=== PATIENT | male | born 1975 | race Caucasian/White ===

== ENCOUNTER 2023-09-21 06:05 | Day surgery (SDC) | payer OTHER ==
[2023-09-14 10:35] LABS: BASOPHILS % (AUTO) 0.6 % (0.0-2.0); EOSINOPHILS # (AUTO) 0.2 K/uL (0.0-0.4); EOSINOPHILS % (AUTO) 3.3 % (0.0-4.0); LYMPHOCYTES # (AUTO) 1.8 K/uL (1.0-5.5); LYMPHOCYTES % (AUTO) 28.2 % (20.5-51.5); MEAN CORPUSCULAR HEMOGLOBIN 34 pg (27-31); MEAN CORPUSCULAR HGB CONC 35 % (32-36); MEAN CORPUSCULAR VOLUME 95 fL (79.0-98.0); MONOCYTES # (AUTO) 0.6 K/uL (0.0-1.0); MONOCYTES % (AUTO) 9.2 % (1.7-9.3); NEUTROPHILS # (AUTO) 3.7 K/uL (1.8-7.7); NEUTROPHILS % (AUTO) 58.7 % (40.0-70.0); PLATELET COUNT (AUTO) 201 K/uL (130-430); RED BLOOD CELL COUNT(AUTO) 5.07 MIL/uL (4.2-6.2); WHITE BLOOD COUNT (AUTO) 6.4 K/uL (4.8-10.8)
[2023-09-14 10:54] LABS: PROTHROMBIN TIME 10.7 SECS (9.5-12.5)
[2023-09-14 10:56] LABS: ALBUMIN 3.8 g/dL (3.4-4.8); CALCIUM 8.8 mg/dL (8.4-11.0); CREATININE 1.04 mg/dL (0.55-1.30); POTASSIUM 4.1 mmol/L (3.5-5.1); TOTAL BILIRUBIN 0.7 mg/dL (0.0-1.0); TOTAL PROTEIN, SERUM 7.5 g/dL (6.4-8.3)
[2023-09-14 11:01] LABS: BILIRUBIN,URINE NEGATIVE (NEGATIVE); BLOOD, URINE NEGATIVE (NEGATIVE); CLARITY/URINE CLEAR (CLEAR); COLOR,URINE YELLOW (YELLOW); GLUCOSE,URINE NEGATIVE (NEGATIVE); KETONES,URINE NEGATIVE (NEGATIVE); LEUKOCYTE ESTERASE ,URINE NEGATIVE (NEGATIVE); NITRITE, URINE NEGATIVE (NEGATIVE); PH,URINE 6.5 (5.0-8.0); PROTEIN URINE NEGATIVE (NEGATIVE); UROBILINOGEN,URINE 0.2 (0.2-1.0)
[~2023-09-21] VITALS: Ht 165.1 cm; Wt 103.9 kg
[2023-09-21] MEDS ORDERED: MEPERIDINE HCL/PF 25 MG/ML DISP.SYRIN IVP PRN (07:45)
[2023-09-21] MEDS ORDERED: MORPHINE 4 MG INJ. 4 MG/ML VIAL IVP PRN ×2 (07:45→12:00)
[2023-09-21] MEDS ORDERED: LR 1,000 ML IV SCH (07:45)
[2023-09-21] MEDS ORDERED: DEXAMETHASONE SOD PHOSPHATE 4 MG/ML VIAL ONE (07:47)
[2023-09-21] MEDS ORDERED: SEVOFLURANE 15 MIN GAS INH ONE (07:47)
[2023-09-21] MEDS ORDERED: ROCURONIUM BROMIDE 10 MG/ML (ZEMURON) ONE (07:47)
[2023-09-21] MEDS ORDERED: NS IRRIG SOLN 1000 ML IR ONE (07:47)
[2023-09-21] MEDS ORDERED: fentaNYL CITRATE/PF 100 MCG/2 ML AMP ONE (07:47)
[2023-09-21] MEDS ORDERED: PROPOFOL 200MG/ 20ML VIAL (DIPRIVAN) IV ONE (07:47)
[2023-09-21] MEDS ORDERED: MIDAZOLAM HCL 2 MG/2 ML VIAL (VERSED) ONE (07:47)
[2023-09-21] MEDS ORDERED: METOCLOPRAMIDE HCL 10 MG/2 ML VIAL ONE (07:47)
[2023-09-21] MEDS ORDERED: LR 500 ML IV.SOLN IV ONE (07:47)
[2023-09-21] MEDS ORDERED: SUGAMMADEX SODIUM 200 MG/2 ML VIAL IV ONE (07:47)
[2023-09-21] MEDS ORDERED: KETOROLAC TROMETHAMINE 30 MG VIAL ONE (07:47)
[2023-09-21] MEDS ORDERED: BUPIVACAINE /EPINEPHRINE/PF 0.25% 30 ML VIAL ONE (07:47)
[2023-09-21] MEDS ORDERED: CEFAZOLIN 2 GM IVPB PREMIX 50 ML IV ONE (07:52)
[2023-09-21] MEDS ORDERED: ACETAMINOPHEN I.V. 1000 MG 100 ML IV ONE (08:16)
[2023-09-21] MEDS ORDERED: BUPIVACAINE LIPOSOME/PF 266 MG/20 ML VIAL INFIL ONE (08:17)
[2023-09-21] MEDS ORDERED: ONDANSETRON HCL 4 MG/2 ML VIAL IVP PRN ×2 (09:15→12:00)
[2023-09-21] MEDS ORDERED: ONDANSETRON HCL 4 MG/2 ML VIAL ONE (09:30)
[2023-09-21] MEDS ORDERED: HYDROmorphone 1 MG/ML INJ. CARTRIDGE ONE (09:31)
[2023-09-21] MEDS: HYDROmorphone 1 MG/ML INJ. CARTRIDGE IVP PRN (09:32)
[2023-09-21] MEDS: ONDANSETRON HCL 4 MG/2 ML VIAL IVP PRN (09:32)
[2023-09-21] MEDS ORDERED: IPRATROPIUM/ALBUTEROL SULFATE 3 ML AMPUL.NEB (DUONEB) ONE (10:25)
[2023-09-21 10:31] VITALS: O2SAT 96
[2023-09-21] MEDS: IPRATROPIUM/ALBUTEROL SULFATE 3 ML AMPUL.NEB (DUONEB) INH ONE (10:57)
[2023-09-21] MEDS: MEPERIDINE HCL/PF 25 MG/ML DISP.SYRIN IVP ONE ×2 (11:50→12:10)
[2023-09-21] MEDS ORDERED: MEPERIDINE 100 MG INJ. 100 MG/ML VIAL ONE (11:50)
[2023-09-21] MEDS ORDERED: MAGNESIUM SULFATE 50 ML IV PRN (12:00)
[2023-09-21] MEDS ORDERED: MORPHINE 2 MG/ML INJ. SYRINGE IVP PRN (12:00)
[2023-09-21] MEDS ORDERED: LORazepam 2 MG/ML VIAL IVP PRN (12:00)
[2023-09-21] MEDS ORDERED: POTASSIUM CHLORIDE 40 MEQ, LIDOCAINE JECT 2% PF 100 MG 50 MG in NS 250 ML IV PRN (12:00)
[2023-09-21 12:30] VITALS: BP_SYST 101; PULSE 94; RESP 18; TEMP 97.1; O2SAT 95
[2023-09-21] MEDS ORDERED: IPRATROPIUM/ALBUTEROL SULFATE 3 ML AMPUL.NEB (DUONEB) INH PRN (13:00)
[2023-09-21 13:40] LABS: FREE T4 (FREE THYROXINE) 1.1 ng/dl (0.8-1.5); THYROID STIMULATING HORMONE 0.88 uIu/mL (0.36-3.74)
[2023-09-21] MEDS ORDERED: ATOR20TA64 PO (16:00)
[2023-09-21 16:06] VITALS: BP_SYST 101; PULSE 94; O2SAT 95
[2023-09-21 20:00] VITALS: BP_SYST 131; PULSE 114; RESP 20; TEMP 97.7; O2SAT 96
[2023-09-22] VITALS: BP_SYST 128; PULSE 102; RESP 20; TEMP 97.6; O2SAT 97
[2023-09-22 07:54] LABS: BASOPHILS # (AUTO) 0.1 K/uL (0.0-0.2); BASOPHILS % (AUTO) 0.4 % (0.0-2.0); EOSINOPHILS % (AUTO) 0.1 % (0.0-4.0); HEMATOCRIT 45.9 % (36-54); HEMOGLOBIN 15.9 g/dL (14.0-18.0); LYMPHOCYTES # (AUTO) 1.3 K/uL (1.0-5.5); LYMPHOCYTES % (AUTO) 8.6 % (20.5-51.5); MEAN CORPUSCULAR HEMOGLOBIN 33 pg (27-31); MEAN CORPUSCULAR HGB CONC 35 % (32-36); MEAN CORPUSCULAR VOLUME 95 fL (79.0-98.0); MONOCYTES # (AUTO) 1.1 K/uL (0.0-1.0); MONOCYTES % (AUTO) 7.2 % (1.7-9.3); NEUTROPHILS # (AUTO) 12.7 K/uL (1.8-7.7); NEUTROPHILS % (AUTO) 83.7 % (40.0-70.0); PLATELET COUNT (AUTO) 209 K/uL (130-430); RED BLOOD CELL COUNT(AUTO) 4.82 MIL/uL (4.2-6.2); WHITE BLOOD COUNT (AUTO) 15.1 K/uL (4.8-10.8)
[2023-09-22 08:09] LABS: ALBUMIN 3.3 g/dL (3.4-4.8); CALCIUM 8.6 mg/dL (8.4-11.0); CREATININE 1.01 mg/dL (0.55-1.30); PHOSPHORUS 3.1 mg/dL (2.7-4.5); TOTAL BILIRUBIN 0.7 mg/dL (0.0-1.0); TOTAL PROTEIN, SERUM 6.8 g/dL (6.4-8.3)
[2023-09-22] MEDS: ENOXAPARIN SODIUM 40 MG/0.4 ML SYRINGE SUBCUT SCH (09:19)
[2023-09-22] MEDS: ACETAMINOPHEN 325 MG TABLET PO PRN (09:25)
[2023-09-22] MEDS ORDERED: ACET325T PO (10:28)
[2023-09-22 11:00] VITALS: O2SAT 97
[2023-09-22 13:21] VITALS: BP_SYST 128; PULSE 78; RESP 17; TEMP 98; O2SAT 98
== END 2023-09-22 13:40 | disposition home or self-care (01) ==
LOC: SMU 06:05 → SDS 06:05 → SMU 12:12 → SDS 09-22 13:40
PROVIDERS: ATTEND Surgery
DX: K42.0 Umbilical hernia with obstruction, without gangrene (principal); E78.5 Hyperlipidemia, unspecified; E66.3 Overweight; Z68.38 Body mass index [BMI] 38.0-38.9, adult; Z91.018 Allergy to other foods; Z79.899 Other long term (current) drug therapy
CPT/HCPCS: 71046; 80053 ×2; 81001; 85025 ×2; 85610; 85730; 87081; 36415 ×2; 93005; 81003; 49594; 94070; 71045 ×2; 83037; 83880; 84439; 83735; 84100; 84443; 88305; 94640; J3490 ×2; J0690; J1100; J1885; J2765; J3465; J2405; J2704; J3010; J1170; J2175; C1781; J0131; J1650; C9290; J7120